=== PATIENT | female | born 1935 | race African-American/Black ===

== ENCOUNTER → 2018-01-13 | Emergency (ER) | payer SELFPAY, OTHER, MEDICARE | END | disposition left against medical advice (07) | LOC: E/R 12:38 | DX: Z53.21 Procedure and treatment not carried out due to patient leaving prior to being seen by health care provider (principal) ==

== ENCOUNTER 2018-02-06 10:52 | Inpatient (IN) | payer MEDICARE, OTHER ==
[2018-02-06 12:26] LABS: ADD MAN DIFF? NO
[2018-02-06 12:28] LABS: BASOPHILS % 0.2 % (0.0-2.0); HEMATOCRIT 26.5 % (37.0-47.0); HEMOGLOBIN 8.1 g/dl (12.0-16.0); LYMPHOCYTES # 0.7 10^3/ul (0.8-2.9); LYMPHOCYTES % 7.7 % (15.0-51.0); MEAN CORPUSCULAR HEMOGLOBIN 24.3 pg (29.0-33.0); MEAN CORPUSCULAR HGB CONC 30.6 g/dl (32.0-37.0); MEAN CORPUSCULAR VOLUME 79.6 fl (82.0-101.0); MEAN PLATELET VOLUME 8.7 fl (7.4-10.4); MONOCYTE # 0.4 10^3/ul (0.3-0.9); MONOCYTES % 4.2 % (0.0-11.0); NEUTROPHIL # 8.3 10^3/ul (1.6-7.5); NEUTROPHILS % 87.6 % (39.0-77.0); PLATELET COUNT 305 10^3/UL (140-415); RED BLOOD COUNT 3.33 10^6/ul (4.20-5.40); RED CELL DISTRIBUTION WIDTH 14.9 % (11.5-14.5)
[2018-02-06 12:28] LABS: WHITE BLOOD COUNT 9.5 10^3/ul (4.8-10.8)
[2018-02-06 12:45] LABS: ALANINE AMINOTRANSFERASE 7 IU/L (13-69); ALBUMIN 4.7 g/dl (3.3-4.9); ALBUMIN/GLOBULIN RATIO 1.27; ALKALINE PHOSPHATASE 72 IU/L (42-121); ANION GAP 22 (8-16); ASPARTATE AMINO TRANSFERASE 18 IU/L (15-46); BILIRUBIN,INDIRECT 0.1 mg/dl (0-1.1); BILIRUBIN,TOTAL 0.1 mg/dl (0.2-1.3); BLOOD UREA NITROGEN 27 mg/dl (7-20); CALCIUM 10.3 mg/dl (8.4-10.2); CARBON DIOXIDE 18 mmol/L (21-31); CHLORIDE 108 mmol/L (97-110); CREATININE 3.43 mg/dl (0.44-1.00); GLUCOSE 112 mg/dl (70-220); LIPASE 252 U/L (23-300); SODIUM 142 mmol/L (135-144); TOTAL PROTEIN 8.4 g/dl (6.1-8.1)
[2018-02-06 12:58] LABS: POTASSIUM 6.3 mmol/L (3.5-5.1)
[2018-02-06] MEDS: ONDANSETRON 4 MG INJ IV (13:06)
[2018-02-06] MEDS: DEXTROSE 50% 50 ML SYRINGE IV ×2 (13:11→14:37)
[2018-02-06] MEDS: NA BICARBONATE 8.4% 50 ML SYG IV (13:11)
[2018-02-06] MEDS: NA POLYST SULFON 15 GM/60 ML BTL PO (13:12)
[2018-02-06] MEDS: INSULIN REGULAR, HUMAN 100 UNIT/1 ML 3ML VIAL IVP (13:13)
[2018-02-06] MEDS: SOD CHLORIDE 0.9% 1,000 ML IV (13:28)
[2018-02-06] MEDS ORDERED: ACETAMINOPHEN 325 MG TAB PO (13:30)
[2018-02-06] MEDS ORDERED: ONDANSETRON 4 MG INJ IV (13:30)
[2018-02-06 13:54] LABS: INR 1.06; PARTIAL THROMBOPLASTIN TIME 25.8 Sec (25.0-35.0); PROTIME 13.9 Sec (11.9-14.9); PT RATIO 1.1
[2018-02-06] MEDS: ACETYLCYSTEINE 600 MG CAP PO ×2 (14:00→22:30)
[2018-02-06] MEDS ORDERED: BISACODYL (EC) 5 MG TAB PO (14:00)
[2018-02-06] MEDS ORDERED: NA PHOSPHATE/BIPHOS 133 ML ENEMA PR (14:00)
[2018-02-06] MEDS ORDERED: HYDROCODONE/APAP (5/325) TAB PO (14:00)
[2018-02-06] MEDS ORDERED: NACL 0.9% 3 ML SYG IV (14:00)
[2018-02-06 14:59] LABS: ERYTHROCYTE SEDIMENTATION RATE 21 mm/Hr (0-30)
[2018-02-06 15:15] LABS: IONIZED CALCIUM 1.3 mmol/L (1.1-1.4)
[2018-02-06] MEDS: SUCRALFATE 1 GM TAB PO ×2 (17:00→22:30)
[2018-02-06] MEDS: METOCLOPRAMIDE 10 MG TAB PO ×2 (17:30→22:33)
[2018-02-06] MEDS: SOD CHLORIDE 0.45% 1,000 ML IV (18:37)
[2018-02-06 19:28] LABS: POTASSIUM 5.3 mmol/L (3.5-5.1)
[2018-02-06 19:30] LABS: IRON 52 ug/dl (35-150)
[2018-02-06 19:40] LABS: % IRON SATURATION 16 % SAT (22-52); TOTAL IRON BINDING CAPACITY 320 ug/dl (241-421)
[2018-02-06 20:07] LABS: FERRITIN 29.5 ng/ml (11.1-264.0)
[2018-02-06] MEDS: FAMOTIDINE 20 MG TAB PO (21:31)
[2018-02-06] MEDS: METOPROLOL 25 MG TAB PO (21:31)
[2018-02-06] MEDS: HEPARIN 5,000 UNIT/0.5 ML VIAL SC (21:33)
[2018-02-06 22:18] LABS: ADD UMIC YES; UR ASCORBIC ACID NEGATIVE (NEGATIVE); UR BACTERIA FEW /HPF (NONE SEEN); UR BILIRUBIN (Dip) NEGATIVE (NEGATIVE); UR BLOOD (Dip) NEGATIVE (NEGATIVE); UR CLARITY CLEAR (CLEAR); UR COLOR YELLOW (YELLOW); UR GLUCOSE (Dip) 1+ mg/dL (NEGATIVE); UR KETONES (Dip) NEGATIVE (NEGATIVE); UR LEUKOCYTE ESTERASE (Dip) TRACE Leu/ul (NEGATIVE); UR NITRITE (Dip) NEGATIVE (NEGATIVE); UR RBC 1 /HPF (0-5); UR SPECIFIC GRAVITY (Dip) 1.013 (1.003-1.030); UR SQUAMOUS EPITHELIAL CELL FEW /HPF (FEW); UR TOTAL PROTEIN (Dip) NEGATIVE (NEGATIVE); UR UROBILINOGEN (Dip) NEGATIVE (NEGATIVE); UR WBC 3 /HPF (0-5)
[2018-02-06] MEDS: METHADONE 10 MG TAB PO (22:30)
[2018-02-07] MEDS: SOD CHLORIDE 0.45% 1,000 ML IV ×2 (04:00→14:00)
[2018-02-07 06:02] LABS: ADD MAN DIFF? NO
[2018-02-07 06:09] LABS: ABNORMAL IP MESSAGE 1; BASOPHILS % 0.4 % (0.0-2.0); EOSINOPHILS # 0.2 10^3/ul (0.0-0.5); EOSINOPHILS % 2.1 % (0.0-7.0); HEMATOCRIT 21.5 % (37.0-47.0); LYMPHOCYTES # 1.7 10^3/ul (0.8-2.9); LYMPHOCYTES % 23.9 % (15.0-51.0); MEAN CORPUSCULAR HEMOGLOBIN 24.1 pg (29.0-33.0); MEAN CORPUSCULAR HGB CONC 31.2 g/dl (32.0-37.0); MEAN CORPUSCULAR VOLUME 77.3 fl (82.0-101.0); MEAN PLATELET VOLUME 10.3 fl (7.4-10.4); MONOCYTES % 13.2 % (0.0-11.0); NEUTROPHIL # 4.4 10^3/ul (1.6-7.5); NEUTROPHILS % 60.1 % (39.0-77.0); PLATELET COUNT 295 10^3/UL (140-415); RED BLOOD COUNT 2.78 10^6/ul (4.20-5.40); RED CELL DISTRIBUTION WIDTH 14.6 % (11.5-14.5)
[2018-02-07 06:09] LABS: WHITE BLOOD COUNT 7.3 10^3/ul (4.8-10.8)
[2018-02-07 06:22] LABS: POSITIVE DIFF @See below
[2018-02-07 06:23] LABS: HEMOGLOBIN 6.7 g/dl (12.0-16.0)
[2018-02-07 06:53] LABS: ALANINE AMINOTRANSFERASE 16 IU/L (13-69); ALBUMIN 3.9 g/dl (3.3-4.9); ALBUMIN/GLOBULIN RATIO 1.44; ALKALINE PHOSPHATASE 45 IU/L (42-121); ANION GAP 19 (8-16); ASPARTATE AMINO TRANSFERASE 23 IU/L (15-46); BLOOD UREA NITROGEN 22 mg/dl (7-20); CALCIUM 8.8 mg/dl (8.4-10.2); CARBON DIOXIDE 21 mmol/L (21-31); CHLORIDE 106 mmol/L (97-110); CREATININE 2.74 mg/dl (0.44-1.00); GLUCOSE 77 mg/dl (70-220); SODIUM 141 mmol/L (135-144); TOTAL PROTEIN 6.6 g/dl (6.1-8.1)
[2018-02-07] MEDS: METOCLOPRAMIDE 10 MG TAB PO ×4 (07:35→22:20)
[2018-02-07 09:00] LABS: SODIUM,URINE RANDOM 90 mmol/L (30-90)
[2018-02-07] MEDS: FLUOXETINE 20 MG CAP PO (09:00)
[2018-02-07] MEDS ORDERED: SOLIFENACIN 5 MG TAB PO (09:00)
[2018-02-07] MEDS: METHADONE 10 MG TAB PO ×2 (09:00→11:39)
[2018-02-07 09:02] LABS: CREATININE,URINE RANDOM 134.82 mg/dl (20-320)
[2018-02-07] MEDS: SUCRALFATE 1 GM TAB PO ×4 (10:01→22:24)
[2018-02-07] MEDS: METOPROLOL 25 MG TAB PO ×2 (10:02→21:17)
[2018-02-07] MEDS: ACETYLCYSTEINE 600 MG CAP PO ×2 (10:02→22:24)
[2018-02-07] MEDS: LEVOTHYROXINE 100 MCG TAB PO (10:03)
[2018-02-07] MEDS: LAMOTRIGINE 100 MG TAB PO (10:03)
[2018-02-07] MEDS: ASPIRIN (EC) 81 MG TAB PO (10:06)
[2018-02-07] MEDS: HEPARIN 5,000 UNIT/0.5 ML VIAL SC ×2 (10:09→21:14)
[2018-02-07 17:41] LABS: IMMEDIATE SPIN CROSSMATCH 1 1
[2018-02-07] MEDS: SOD FERRIC GLUC COMPLX 125 MG in SOD CHLORIDE 0.9% 100 ML IVPB (20:26)
[2018-02-07] MEDS: FAMOTIDINE 20 MG TAB PO (21:16)
[2018-02-08] MEDS: SOD CHLORIDE 0.45% 1,000 ML IV ×3 (00:15→17:16)
[2018-02-08 06:03] LABS: ADD MAN DIFF? NO
[2018-02-08 06:08] LABS: WHITE BLOOD COUNT 6.7 10^3/ul (4.8-10.8)
[2018-02-08 06:08] LABS: BASOPHILS % 0.6 % (0.0-2.0); EOSINOPHILS # 0.2 10^3/ul (0.0-0.5); EOSINOPHILS % 2.3 % (0.0-7.0); HEMATOCRIT 26.3 % (37.0-47.0); HEMOGLOBIN 8.3 g/dl (12.0-16.0); LYMPHOCYTES # 1.1 10^3/ul (0.8-2.9); LYMPHOCYTES % 16.5 % (15.0-51.0); MEAN CORPUSCULAR HEMOGLOBIN 24.7 pg (29.0-33.0); MEAN CORPUSCULAR HGB CONC 31.6 g/dl (32.0-37.0); MEAN CORPUSCULAR VOLUME 78.3 fl (82.0-101.0); MEAN PLATELET VOLUME 10.2 fl (7.4-10.4); MONOCYTE # 0.7 10^3/ul (0.3-0.9); MONOCYTES % 10.7 % (0.0-11.0); NEUTROPHIL # 4.6 10^3/ul (1.6-7.5); NEUTROPHILS % 69.7 % (39.0-77.0); PLATELET COUNT 258 10^3/UL (140-415); RED BLOOD COUNT 3.36 10^6/ul (4.20-5.40); RED CELL DISTRIBUTION WIDTH 14.4 % (11.5-14.5)
[2018-02-08 06:19] LABS: ALANINE AMINOTRANSFERASE 15 IU/L (13-69); ALBUMIN 3.6 g/dl (3.3-4.9); ALBUMIN/GLOBULIN RATIO 1.38; ALKALINE PHOSPHATASE 55 IU/L (42-121); ANION GAP 15 (8-16); ASPARTATE AMINO TRANSFERASE 16 IU/L (15-46); BILIRUBIN,INDIRECT 0.2 mg/dl (0-1.1); BILIRUBIN,TOTAL 0.2 mg/dl (0.2-1.3); BLOOD UREA NITROGEN 14 mg/dl (7-20); CALCIUM 8.6 mg/dl (8.4-10.2); CARBON DIOXIDE 22 mmol/L (21-31); CHLORIDE 108 mmol/L (97-110); CREATININE 2.26 mg/dl (0.44-1.00); GLUCOSE 83 mg/dl (70-220); MAGNESIUM 1.8 mg/dl (1.7-2.5); PHOSPHORUS 2.4 mg/dl (2.5-4.9); POTASSIUM 3.8 mmol/L (3.5-5.1); SODIUM 141 mmol/L (135-144); TOTAL PROTEIN 6.2 g/dl (6.1-8.1)
[2018-02-08] MEDS: SUCRALFATE 1 GM TAB PO ×4 (08:57→21:23)
[2018-02-08] MEDS: ASPIRIN (EC) 81 MG TAB PO (08:58)
[2018-02-08] MEDS: ACETYLCYSTEINE 600 MG CAP PO ×2 (08:58→21:21)
[2018-02-08] MEDS: METOPROLOL 25 MG TAB PO ×2 (08:58→21:22)
[2018-02-08] MEDS: METOCLOPRAMIDE 10 MG TAB PO ×4 (08:59→21:22)
[2018-02-08] MEDS: LAMOTRIGINE 100 MG TAB PO (08:59)
[2018-02-08] MEDS: HEPARIN 5,000 UNIT/0.5 ML VIAL SC ×2 (09:00→21:24)
[2018-02-08] MEDS: LEVOTHYROXINE 100 MCG TAB PO (09:02)
[2018-02-08 16:56] LABS: CREATININE,URINE RANDOM 29.92 mg/dl (20-320); PROTEIN/CREAT RATIO 0.73 RATIO
[2018-02-08] MEDS: SOD FERRIC GLUC COMPLX 125 MG in SOD CHLORIDE 0.9% 100 ML IVPB (17:21)
[2018-02-08] MEDS: FAMOTIDINE 20 MG TAB PO (21:21)
[2018-02-08] MEDS: AMLODIPINE 5 MG TAB PO (21:55)
[2018-02-09] MEDS: SOD CHLORIDE 0.45% 1,000 ML IV (05:00)
[2018-02-09 05:53] LABS: ADD MAN DIFF? NO
[2018-02-09 05:57] LABS: WHITE BLOOD COUNT 7.8 10^3/ul (4.8-10.8)
[2018-02-09 05:57] LABS: BASOPHIL # 0.1 10^3/ul (0.0-0.1); BASOPHILS % 0.6 % (0.0-2.0); EOSINOPHILS # 0.2 10^3/ul (0.0-0.5); EOSINOPHILS % 2.1 % (0.0-7.0); HEMATOCRIT 26.1 % (37.0-47.0); HEMOGLOBIN 8.4 g/dl (12.0-16.0); LYMPHOCYTES # 1.5 10^3/ul (0.8-2.9); LYMPHOCYTES % 19.1 % (15.0-51.0); MEAN CORPUSCULAR HEMOGLOBIN 24.6 pg (29.0-33.0); MEAN CORPUSCULAR HGB CONC 32.2 g/dl (32.0-37.0); MEAN CORPUSCULAR VOLUME 76.3 fl (82.0-101.0); MEAN PLATELET VOLUME 10.1 fl (7.4-10.4); MONOCYTE # 0.8 10^3/ul (0.3-0.9); MONOCYTES % 10.3 % (0.0-11.0); NEUTROPHIL # 5.3 10^3/ul (1.6-7.5); NEUTROPHILS % 67.6 % (39.0-77.0); PLATELET COUNT 273 10^3/UL (140-415); RED BLOOD COUNT 3.42 10^6/ul (4.20-5.40); RED CELL DISTRIBUTION WIDTH 14.4 % (11.5-14.5)
[2018-02-09 06:45] LABS: ALANINE AMINOTRANSFERASE 13 IU/L (13-69); ALBUMIN 3.6 g/dl (3.3-4.9); ALBUMIN/GLOBULIN RATIO 1.33; ALKALINE PHOSPHATASE 57 IU/L (42-121); ANION GAP 15 (8-16); ASPARTATE AMINO TRANSFERASE 20 IU/L (15-46); BILIRUBIN,INDIRECT 0.1 mg/dl (0-1.1); BILIRUBIN,TOTAL 0.1 mg/dl (0.2-1.3); BLOOD UREA NITROGEN 10 mg/dl (7-20); CALCIUM 8.9 mg/dl (8.4-10.2); CARBON DIOXIDE 20 mmol/L (21-31); CHLORIDE 111 mmol/L (97-110); CREATININE 2.05 mg/dl (0.44-1.00); GLUCOSE 88 mg/dl (70-220); MAGNESIUM 1.7 mg/dl (1.7-2.5); PHOSPHORUS 2.2 mg/dl (2.5-4.9); POTASSIUM 3.5 mmol/L (3.5-5.1); SODIUM 142 mmol/L (135-144); TOTAL PROTEIN 6.3 g/dl (6.1-8.1)
[2018-02-09] MEDS: METOCLOPRAMIDE 10 MG TAB PO ×3 (07:28→16:12)
[2018-02-09] MEDS: LEVOTHYROXINE 100 MCG TAB PO (07:28)
[2018-02-09] MEDS: ASPIRIN (EC) 81 MG TAB PO (08:29)
[2018-02-09] MEDS: HEPARIN 5,000 UNIT/0.5 ML VIAL SC (08:29)
[2018-02-09] MEDS: METOPROLOL 25 MG TAB PO (08:30)
[2018-02-09] MEDS: SUCRALFATE 1 GM TAB PO ×3 (08:31→16:11)
[2018-02-09] MEDS: ACETYLCYSTEINE 600 MG CAP PO (08:31)
[2018-02-09] MEDS: LAMOTRIGINE 100 MG TAB PO (08:32)
[2018-02-09] MEDS: POTASSIUM CHLORIDE (SR) 10 MEQ TAB PO (14:10)
[2018-02-09] MEDS: MAGNESIUM SULFATE 2 GM/50 ML 50 ML IVPB (14:11)
[2018-02-09] MEDS: SOD FERRIC GLUC COMPLX 125 MG in SOD CHLORIDE 0.9% 100 ML IVPB (16:10)
[2018-02-09 18:11] LABS: PTH CALCIUM 8.5 mg/dL (8.6-10.4)
[2018-02-10 06:57] LABS: PTH INTACT 71 pg/mL (14-64)
== END 2018-02-09 18:13 | disposition home or self-care (01) | DRG 683 ==
LOC: E/R 10:52 → MS3 13:32
PROC: 30233N1 Transfusion of Nonautologous Red Blood Cells into Peripheral Vein, Percutaneous Approach (ICD-10-PCS; principal; 2018-02-07)
DX: N17.9 Acute kidney failure, unspecified (principal); K92.2 Gastrointestinal hemorrhage, unspecified; E86.0 Dehydration; E87.5 Hyperkalemia; D50.0 Iron deficiency anemia secondary to blood loss (chronic); I12.9 Hypertensive chronic kidney disease with stage 1 through stage 4 chronic kidney disease, or unspecified chronic kidney disease; N18.2 Chronic kidney disease, stage 2 (mild); E03.9 Hypothyroidism, unspecified; G89.29 Other chronic pain; F34.1 Dysthymic disorder; K21.9 Gastro-esophageal reflux disease without esophagitis; F32.9 Major depressive disorder, single episode, unspecified; F41.9 Anxiety disorder, unspecified; Z79.82 Long term (current) use of aspirin; K44.9 Diaphragmatic hernia without obstruction or gangrene; M48.061 Spinal stenosis, lumbar region without neurogenic claudication; D64.9 Anemia, unspecified; E83.39 Other disorders of phosphorus metabolism
CPT/HCPCS: 36415; 36430; 71045; 76775; 80053; 81001; 81003; 82330; 82570; 82728; 82962; 83540; 83690; 83735; 83970; 84100; 84132; 84155; 84300; 84484; 85025; 85610; 85651; 85730; 86850; 86870; 86900; 86901; 86902; 86920; 87086; 93005; 96374; 96375; 97116; 97162; 97165; 99291-25

== ENCOUNTER → 2018-03-06 | Outpatient (CLI) | payer MEDICARE, OTHER ==
[~2018-03-06] MED LIST: BARIUM SULF 2% 450 ML BTL (BERRY SMOOTHIE) PO
== END | disposition home or self-care (01) ==
LOC: C/S 13:45
DX: R63.4 Abnormal weight loss (principal)
CPT/HCPCS: 74176